=== PATIENT | female | born 1995 | race Caucasian/White ===

== ENCOUNTER 2017-12-27 06:59 | Day surgery (SDC) | payer OTHER ==
[2017-12-26 16:15] VITALS: BMI 39.6
[2017-12-27] MEDS ORDERED: Fentanyl 100 MCG/2 ML VIAL ONE ×2 (09:27→10:09)
[2017-12-27] MEDS ORDERED: Meperidine HCl/PF 25 MG/ML VIAL ONE (09:27)
[2017-12-27] MEDS ORDERED: Ondansetron HCl/PF 4 MG/2 ML Vial ONE ×2 (09:39→15:55)
[2017-12-27 09:42] LABS: BHCG - Serum Negative (NEGATIVE); Pregs Control Background? CLEAR/WHITE (CLR/WHITE); Pregs Control Bar Appear? YES (CONTROL BAR)
[2017-12-27] MEDS ORDERED: methylPREDNISolone Acetate 40 mg/ml Vial ONE (09:49)
[2017-12-27] MEDS ORDERED: Midazolam HCl 2 mg/2 ml Vial ONE (10:09)
[2017-12-27] MEDS ORDERED: Hydrocodone-Acetamin 15 ML UDCUP ONE (11:22)
[2017-12-27] MEDS ORDERED: Lidocaine 1% PF 5 ML VIAL ONE (15:55)
[2017-12-27] MEDS ORDERED: PROPOFOL 200 MG/20 ML VIAL ONE (15:55)
[2017-12-27] MEDS ORDERED: Dexamethasone 20 MG/5 ML VIAL ONE (15:55)
--- NOTE | 2017-12-27 20:52 | OP ---
DATE OF OPERATION: 12/27/2017 PREOPERATIVE DIAGNOSES: 1. Chronic adenotonsillitis. 2. Adenotonsillar hypertrophy. POSTOPERATIVE DIAGNOSES: 1. Chronic adenotonsillitis. 2. Adenotonsillar hypertrophy. PROCEDURES: Tonsillectomy and adenoidectomy. SURGEON: Roly Ruvalcaba M.D. ESTIMATED BLOOD LOSS: 0 mL. COMPLICATIONS: None. ANESTHESIA: GETA. PROCEDURE IN DETAIL: After consent was obtained, the patient was identified, brought to the operatin g room, and placed on the operating table in the supine position. General endotracheal anesthesia an d intravenous access was obtained and we proceeded with positioning the patient for oropharyngeal marcela roger. Oropharyngeal exposure was obtained with a Doyle-Nikolay mouth gag after a head drape was placed and secured with a towel clip. The Doyle-Nikolay mouth gag was then suspended from the Ingram tray and palatal elevation was achieved with a red rubber catheter. The right tonsil was addressed first. We used a curved Allis to grasp the tonsil and retract it medially as an anterior pillar incision was m efra. The retrotonsillar fascial plane was then established and blunt dissection was performed with t he suction cautery. Blood vessels were anticipated, identified, and cauterized as they were encounte red. Ultimately, dissection was carried to the posterior tonsillar pillar mucosa which was incised h emostatically, as well as the base of tongue connection. The tonsil was then passed off as a specime n and bleeding points within the tonsillar bed were cauterized under direct visualization. We subseq uently turned our attention to the contralateral side, where using a similar technique, a near identi kyleigh procedure was performed. Again, the tonsil was grasped and retracted medially with a curved Sai s. The retrotonsillar fascial plane was established and while the anterior pillar was retracted medi ally, the hemostatic blunt dissection of the tonsil with a suction cautery was performed with blood v essels anticipated, identified, and cauterized as they were encountered. Again, dissection continued to the base of tongue and posterior tonsillar pillar mucosa which was incised in a hemostatic fashio n. The tonsillar beds were then carefully inspected and bleeding points were identified and cauteriz ed with a suction cautery. After this portion of the procedure, hemostasis was completely obtained. Under direct mirror visualization, we visualized the adenoid pad. Under direct mirror visualization , we removed the bulk of the adenoid tissue with the adenoid curette. We then packed the nasopharynx for an appropriate period of time with Daniel-Synephrine saturated tonsillar sponges. After a period o f observation, we removed the pack. Under indirect mirror visualization, we obtained hemostasis and vaporization of residual adenoid tissue with electrocautery. The patient's oral cavity was copiously irrigated with iced saline and subsequently suctioned. After completion of the procedure, the nasal cavity and oropharynx were irrigated and suctioned as were the gastric contents. The patient was th en awakened and transferred to the recovery room where the patient remained in stable condition prior to discharge to Day Stay.
== END 2017-12-27 12:45 | disposition home or self-care (01) ==
LOC: SDC 06:59
PROVIDERS: ATTEND Otolaryngology Plastic Surgery within the Head & Neck
PROC: 0CTPXZZ Resection of Tonsils, External Approach (ICD-10-PCS; principal; 2017-12-27)
PROC: 0CTQXZZ Resection of Adenoids, External Approach (ICD-10-PCS; principal; 2017-12-27)
DX: J35.03 Chronic tonsillitis and adenoiditis (principal); F42.9 Obsessive-compulsive disorder, unspecified; J45.909 Unspecified asthma, uncomplicated; Z79.51 Long term (current) use of inhaled steroids; Z79.899 Other long term (current) drug therapy; Z79.3 Long term (current) use of hormonal contraceptives; Z91.018 Allergy to other foods; Z91.038 Other insect allergy status; Z88.2 Allergy status to sulfonamides; Z91.040 Latex allergy status
CPT/HCPCS: 36415; 84703; 85014; 88304; J1030; J1100; J2001; J2175; J2250; J2405; J2704; J3010

== ENCOUNTER 2019-10-23 07:00 | Day surgery (SDC) | payer OTHER ==
[2019-10-22 13:33] VITALS: BMI 42.5
[2019-10-23] MEDS ORDERED: AFRIN NASAL MIST 15 ML BOT ONE ×2 (08:37→09:11)
[2019-10-23 08:44] LABS: BHCG - Serum Negative (NEGATIVE); Pregs Control Background? CLEAR/WHITE (CLR/WHITE); Pregs Control Bar Appear? YES (CONTROL BAR)
[2019-10-23] MEDS ORDERED: Lidocaine 1% w/Epinephrine 1:100K 20 ML VIAL ONE ×2 (09:11→09:38)
[2019-10-23] MEDS ORDERED: Midazolam HCl 2 mg/2 ml Vial ONE ×2 (09:17)
[2019-10-23] MEDS ORDERED: Fentanyl 100 MCG/2 ML VIAL ONE ×2 (09:17→11:01)
[2019-10-23] MEDS ORDERED: Scopolamine 1.5 mg/72 hour Patch ONE (09:32)
[2019-10-23] MEDS ORDERED: HYDROcodone/Acetaminophen 5/325 mg Tablet ONE (11:14)
[2019-10-23] MEDS ORDERED: Glycopyrrolate 0.2 MG/ML 5 ML SYRINGE ONE (11:17)
[2019-10-23] MEDS ORDERED: Ondansetron PF 4 MG/2 ML Vial ONE (11:17)
[2019-10-23] MEDS ORDERED: PROPOFOL 200 MG/20 ML VIAL ONE (11:17)
[2019-10-23] MEDS ORDERED: Lidocaine 1% PF 5 ML VIAL ONE (11:17)
[2019-10-23] MEDS ORDERED: Rocuronium Bromide 10 MG/ML (10ML VIAL) ONE (11:17)
[2019-10-23] MEDS ORDERED: hydrALAZINE 20 MG/ML VIAL ONE (11:28)
[2019-10-23] MEDS ORDERED: Promethazine HCl 25 MG/ML VIAL ONE ×2 (11:40→11:59)
--- NOTE | 2019-10-23 19:06 | OP ---
DATE OF PROCEDURE: 10/23/2019 PREOPERATIVE DIAGNOSES: 1. Chronic rhinosinusitis. 2. Right middle turbinate stephanie bullosa. 3. Nasal obstruction. 4. Bilateral inferior turbinate hypertrophy. POSTOPERATIVE DIAGNOSES: 1. Chronic rhinosinusitis. 2. Right middle turbinate stephanie bullosa. 3. Nasal obstruction. 4. Bilateral inferior turbinate hypertrophy. PROCEDURES PERFORMED: 1. Bilateral endoscopic sinus surgery, total ethmoidectomies. 2. Bilateral endoscopic sinus surgery, maxillary antrostomies. 3. Bilateral endoscopic sinus surgery, frontal sinusotomies. 4. Bilateral endoscopic sinus surgery, sphenoidotomies. 5. Bilateral inferior turbinate submucosal resection. 6. Right endoscopic sinus surgery, resection of stephanie bullosa. ESTIMATED BLOOD LOSS: 50 mL. COMPLICATIONS: None. ANESTHESIA: GETA. DESCRIPTION OF PROCEDURE: The patient was taken to the operating room and GETA was obtained by the anesthesia staff. Afrin pledgets were then placed into the nasal cavity bilaterally. The patient was placed into the beach chair position and was prepped and draped for standard nasal surgical procedures. Following this, the Afrin pledgets were removed and 1% lidocaine with 1:100,000 epinephrine was injected via a 27 gauge needle into the nasal septum, the inferior turbinate and the middle turbinate bilaterally. Following this, a Selvin incision was made on the left nasal septum and mucoperichondrial flaps were elevated. A strong 2 cm caudal and dorsal cartilage strut was left intact as the deviated portions of the nasal cartilage and bone was removed. A 4-0 gut stitch was used to reapproximate the nasal mucoperichondrial flaps as well as close the Selvin incision. Following this, the submucosal microdebrider was used to puncture and submucosally resect the anterior - inferior portions of the hypertrophic inferior turbinates. The inferior turbinates were laterally outfractured with a [place] elevator. Following this, 45 degree endoscope was then advanced into the middle meatus and the frontal recess and frontal sinus ostia were visualized using the curved microdebrider blade and up-biting Blakesley forceps, the anterior ethmoidal cells were further opened and the frontal sinus ostium was widened bilaterally. Following this, a 0-degree endoscope and a 0-degree microdebrider blade were advanced through the previous ethmoidectomies, where the attachment of the superior turbinate to the posterior nasal wall was identified. Staying just medial and inferior to this, a sphenoidotomy was created bilaterally and was then widened in a medial and inferior direction using the microdebrider bilaterally. Following this, the large right middle turbinate stephanie bullosa was incised vertically on its anterior face with a sickle knife and the lateral wall of the stephanie bullosa was removed using the 0-degree microdebrider and straight Blakesley forceps. Following this, the inferior turbinates were punctured on the anterior and inferior aspect and submucosal resection was performed of the anterior and inferior portions of the inferior turbinates bilaterally. Inferior turbinates were then laterally fractured. Nasal cavity was then irrigated. Nasal pore packing was placed within the middle meatus bilaterally. The patient tolerated the procedure well. Job ID: [id number]
== END 2019-10-23 13:35 | disposition home or self-care (01) ==
LOC: SDC 07:00
PROVIDERS: ATTEND Otolaryngology Plastic Surgery within the Head & Neck
PROC: 099R8ZZ Drainage of Left Maxillary Sinus, Via Natural or Artificial Opening Endoscopic (ICD-10-PCS; principal; 2019-10-23)
PROC: 09BL8ZZ Excision of Nasal Turbinate, Via Natural or Artificial Opening Endoscopic (ICD-10-PCS; principal; 2019-10-23)
PROC: 09BT8ZZ Excision of Left Frontal Sinus, Via Natural or Artificial Opening Endoscopic (ICD-10-PCS; principal; 2019-10-23)
PROC: 099Q8ZZ Drainage of Right Maxillary Sinus, Via Natural or Artificial Opening Endoscopic (ICD-10-PCS; principal; 2019-10-23)
PROC: 09BS8ZZ Excision of Right Frontal Sinus, Via Natural or Artificial Opening Endoscopic (ICD-10-PCS; principal; 2019-10-23)
DX: J32.9 Chronic sinusitis, unspecified (principal); J34.3 Hypertrophy of nasal turbinates; J34.89 Other specified disorders of nose and nasal sinuses; Z79.899 Other long term (current) drug therapy; Z88.2 Allergy status to sulfonamides; Z91.040 Latex allergy status; Z91.018 Allergy to other foods
CPT/HCPCS: 36415; 84703; 85014; J0360; J2001; J2250; J2405; J2550; J2704; J3010